=== PATIENT | male | born 1980 | race Caucasian/White ===

== ENCOUNTER 2021-05-03 13:03 | Emergency (ER) | payer OTHER, SELFPAY ==
[2021-05-03 13:19] VITALS: BP 149/98; PULSE 93; RESP 16; TEMP 36.9; O2SAT 99
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
== END 2021-05-03 13:45 | disposition short-term general hospital (02) ==
PROVIDERS: Emergency Provider Registered Nurse
DX: R10.9 Unspecified abdominal pain (principal)
CPT/HCPCS: 81003; 99212; G0463

== ENCOUNTER 2021-05-03 13:56 | Emergency (ER) | payer OTHER, SELFPAY ==
--- NOTE | ~2021-05-03 | CT_ITS ---
EXAMINATION: CT abdomen pelvis wo con DATE: 05/03/2021 14:34 INDICATION: Right flank pain. TECHNIQUE: Computed tomography (CT) of the abdomen and pelvis was performed without intravenous contr ast. Automated exposure control and iterative reconstruction technique were employed. The dose-length product was 943.85 mGy-cm. COMPARISON: None. FINDINGS: The visualized portions of the lung bases are clear without pneumonia or pleural effusion. The heart size is normal. No pericardial effusion. The liver, gallbladder, spleen, pancreas, adrenal glands, and right kidney are normal. There are cysts in left kidney measuring up to 2.2 cm. There is no urolithiasis. There is a small left inguinal hernia containing fat. There are no dilated loops of bowel. The appendix is normal. There are no pathologically enlarged lymph nodes. There is no free int raperitoneal fluid. There is mild thoracolumbar spondylosis. There are Schmorl's nodes of the superio r endplates of T10, T11, and L1. IMPRESSION: 1. No urolithiasis. Reviewed, dictated and finalized at location A. IMPRESSION: 1. No urolithiasis.
[2021-05-03 14:29] LABS: Basophils Absolute Auto 0.1 K/mm3 (0.0-0.1); Basophils Percent Auto 0.9 % (0.2-1.2); Eosinophils Absolute Auto 0.1 K/mm3 (0-0.3); Eosinophils Percent Auto 1.2 % (0-4.4); Hematocrit 48.3 % (42.0-52.0); Hemoglobin 16.7 g/dL (14.0-18.0); Immature Granulocyte Absolute 0.03 K/mm3 (0.00-0.031); Immature Granulocyte Percent A 0.3 % (0-0.5); Lymphocytes Absolute Auto 2.61 K/mm3 (0.9-3.2); Lymphocytes Percent Auto 28.3 % (18.3-44.2); Mean Corpuscular HGB Conc 34.6 g/dl (32-36); Mean Corpuscular Hemoglobin 30.2 pg (26-34); Mean Corpuscular Volume 87.3 fl (80-100); Mean Platelet Volume 11.5 fl (7.4-10.4); Monocytes Percent Auto 10.6 % (2.6-8.5); Neutrophils Absolute Auto 5.4 K/mm3 (1.3-6.7); Neutrophils Percent Auto 58.7 % (45.5-73.1); Platelet Count Result 260 k/mm3 (150-375); Red Blood Count 5.53 M/mm3 (4.6-6.20); Red Cell Distribution Width 12.8 % (11.5-14.5); White Blood Count 9.2 K/mm3 (4.5-10.0)
[2021-05-03] MEDS: SODIUM CHLORIDE 0.9% IV 1,000 ML 999 ML IV CONT (14:36)
[2021-05-03 14:39] LABS: Alanine Aminotransferase 33 U/L (4-50); Albumin Level 5.2 g/dL (3.5-5.1); Alkaline Phosphatase 64 U/L (38-126); Anion Gap 12 mmol/L (8-16); Aspartate Amino Transferase 40 U/L (17-59); Bilirubin,Total 0.8 mg/dL (0.2-1.3); Blood Urea Nitrogen 18 mg/dL (9-20); Calcium 9.7 mg/dL (8.4-10.2); Carbon Dioxide 28 mmol/L (22-30); Chloride 100 mmol/L (98-107); Estimated CRCL calculation 155 ml/min; Estimated Glomerular Filt Rate > 60; Glucose 77 mg/dL (65-110); Potassium 3.6 mmol/L (3.4-5.0); Sodium 140 mmol/L (137-145)
[2021-05-03] MEDS: KETOROLAC 15 MG/ML VIAL (*BKC) IV PUSH (15:01)
--- NOTE | 2021-05-03 15:01 | ED.GENADULT ---
HPI - General Adult General Chief complaint: Urogenital-Male Stated complaint: r/o kidney stone from urgent care Time Seen by Provider: 05/03/21 13:59 Source: patient Mode of arrival: ambulatory Limitations: no limitations History of Present Illness HPI narrative: Patient presents from urgent care with chief complaint of right flank pain over the past 2 days accompanied by urinary urgency and frequency. Patient reports he feels mild pain from his right flank radiating into his right groin. Patient denies any fever, chills, nausea, vomiting, diarrhea or any other symptoms. Patient reports that he has had the urgency and frequency to urinate more often. He denies any urinary obstruction. He denies noting any blood clots or discharge to his urine. Patient denies concern for STDs. Patient denies history of kidney stones. Related Data Home Medications Medication Instructions Recorded Confirmed cetirizine 10 mg PO DAILY 05/03/21 05/03/21 fluticasone propionate 2 spray INTRANASAL DAILY 05/03/21 05/03/21 Allergies Allergy/AdvReac Type Severity Reaction Status Date / Time No Known Allergies Allergy Verified 05/03/21 13:31 Review of Systems Review of Systems: CONSTITUTIONAL: Denies fever, chills, or sweats. EYES: Denies visual changes, redness, or discharge. ENT: Denies rhinorrhea, congestion, sore throat, or otalgia. CARDIOVASCULAR: Denies chest pain, palpitations, or edema. RESPIRATORY: Denies cough or dyspnea. GASTROINTESTINAL: Denies abdominal pain, nausea, vomiting, or diarrhea. GENITOURINARY: Reports dysuria and frequency denies hematuria. SKIN: Denies rash or itching. MUSCULOSKELETAL: Denies back pain, joint pain, or myalgia. NEUROLOGIC: Denies headache, numbness, dizziness, or weakness. PSYCHIATRIC: Denies anxiety or depression. Exam Narrative: GENERAL: Well-appearing, well-nourished, and in no acute distress. HEAD: Normocephalic, atraumatic. EYES: PERRLA and EOMI. NECK: Supple. Range of motion intact. CHEST: Clear to auscultation. No respiratory distress. No wheezes rales or rhonchi HEART: Regular rate and rhythm. No murmur heard. Normal peripheral pulses. ABDOMEN: No CVA tenderness. Soft, nontender, nondistended, normal active bowel sounds. EXTREMITIES: Normal range of motion. No edema. SKIN: Warm, dry, no rash. NEURO: No focal deficits. Alert and oriented x3. PSYCH: Normal mood and affect. Course Vital Signs Vital signs: Vital Signs Temperature 98.2 F 05/03/21 15:52 Pulse Rate 80 05/03/21 15:52 Respiratory Rate 18 05/03/21 15:52 Blood Pressure 135/86 05/03/21 15:52 Pulse Oximetry 100 05/03/21 15:52 Temperature 98.2 F 05/03/21 15:52 Pulse Rate 80 05/03/21 15:52 Respiratory Rate 18 05/03/21 15:52 Blood Pressure 135/86 05/03/21 15:52 Pulse Oximetry 100 05/03/21 15:52 Medical Decision Making MDM Narrative Medical decision making narrative: Patient does not have signs of kidney stones. Patient will be treated for the medic cystitis. Patient's urine culture will be ordered. Patient been instructed to follow-up primary care or urology for further evaluation and management of his symptoms. Patient instructed to return to emergency department if he develops any fever, chills, nausea, vomiting, urinary retention or any other emergent symptoms. Patient will be placed on Levaquin to cover very dysuria as well as absorption into prostate for prostatis coverage. The importance of following up with patient primary care for urinary analysis and reevaluation of his symptoms in 2 to 3 days. Discussed the importance of return to emergency department if he develops any worsening or emergent symptoms. Patient verbalized understanding we will plan. Patient vital signs are stable and he is nontoxic in appearance. Patient is afebrile and does not have any urinary retention or intense pain. Vital Signs Vital Signs: Vital Signs Temperature 98.2 F 05/03/21 15:52 Pulse Rate 80
[2021-05-03 15:06] LABS: Add Urine Microscopic? YES; Appearance Urine Clear (Clear); Bilirubin Urine Negative (Negative); Blood Urine Negative (Negative); Color Urine Yellow (Yellow); Glucose Urine UA Negative (Negative); Ketones Urine Negative (Negative); Leukocyte Esterase Ur Negative LEU/UL (Negative); Mucus Urine Rare /lpf; Nitrate Urine Negative (Negative); Protein Urine 1+ mg/dL (Negative); Specific Grav Ur 1.024 (1.001-1.035); Urobilinogen Urine Negative mg/dL (<2.0); WBC Urine 0-3 /hpf
[2021-05-03 15:52] VITALS: BP 135/86; PULSE 80; RESP 18; TEMP 36.8; O2SAT 100
== END 2021-05-03 15:53 | disposition home or self-care (01) ==
PROVIDERS: Physician Assistant; Emergency Provider Emergency Medicine
DX: R30.0 Dysuria (principal)
CPT/HCPCS: 36415; 74176; 80053; 81001; 81003; 85025; 87086; 96361; 96374; 99284; J1885; J7030

== ENCOUNTER 2023-02-01 09:59 | Emergency (ER) | payer OTHER, SELFPAY ==
[2023-02-01 10:06] VITALS: BP 125/87; PULSE 90; RESP 16; TEMP 36.6; O2SAT 100
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
== END 2023-02-01 11:10 | disposition home or self-care (01) ==
PROVIDERS: Emergency Provider Registered Nurse; PCP Family Medicine
DX: J32.9 Chronic sinusitis, unspecified (principal); K75.81 Nonalcoholic steatohepatitis (NASH); Z86.16 Personal history of COVID-19
CPT/HCPCS: 99213; G0463

== ENCOUNTER 2023-11-19 14:03 | Emergency (ER) | payer OTHER, SELFPAY ==
--- NOTE | ~2023-11-19 | XR_ITS ---
EXAMINATION: XR chest 2V DATE: 11/19/2023 14:56 INDICATION: Cough. TECHNIQUE: Frontal and lateral views of the chest were obtained. COMPARISON: Chest single view 06/15/2008 FINDINGS: There is no pneumonia, pleural effusion, or pneumothorax. The heart size is normal. IMPRESSION: 1. No acute cardiopulmonary disease. Reviewed, dictated and finalized at location E.
[2023-11-19 14:27] VITALS: BP 154/86; PULSE 123; RESP 20; TEMP 36.9; O2SAT 98
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
== END 2023-11-19 15:30 | disposition home or self-care (01) ==
PROVIDERS: Emergency Provider Nurse Practitioner; PCP Nurse Practitioner Family
DX: J32.9 Chronic sinusitis, unspecified (principal); K75.81 Nonalcoholic steatohepatitis (NASH); Z86.16 Personal history of COVID-19
CPT/HCPCS: 71046; 87081; 99213; G0463

== ENCOUNTER 2025-03-09 09:22 | Emergency (ER) | payer SELFPAY ==
[2025-03-09 09:33] VITALS: BP 138/97; PULSE 101; RESP 16; TEMP 36.7; O2SAT 100
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
== END 2025-03-09 09:51 | disposition home or self-care (01) ==
PROVIDERS: Emergency Provider Nurse Practitioner Family; PCP Internal Medicine
DX: R21 Rash and other nonspecific skin eruption (principal); K75.81 Nonalcoholic steatohepatitis (NASH); Z86.16 Personal history of COVID-19
CPT/HCPCS: 99213; G0463

== ENCOUNTER 2025-04-16 12:34 | Emergency (ER) | payer SELFPAY ==
[2025-04-16 12:42] VITALS: BP 131/90; PULSE 94; RESP 16; TEMP 36.8; O2SAT 98
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
== END 2025-04-16 13:29 | disposition home or self-care (01) ==
PROVIDERS: Emergency Provider Nurse Practitioner; PCP Internal Medicine
DX: S61.412A Laceration without foreign body of left hand, initial encounter (principal); S61.215A Laceration without foreign body of left ring finger without damage to nail, initial encounter; W19.XXXA Unspecified fall, initial encounter; K75.81 Nonalcoholic steatohepatitis (NASH)
CPT/HCPCS: 12001; 99212; G0463